=== PATIENT | male | born 1995 ===

== ENCOUNTER → 2016-02-25 | Outpatient (CLI) | payer OTHER ==
[~2016-02-25] MED LIST: EPP3/2 INJ
[2016-03-02 22:21] LABS: ANA SCREEN Negative (Negative); C1 ESTERASE INHIB TC298 35 mg/dL (21-39); IGE RECEPTOR AB(ANTI-IgE IgG)* 32 ng/mL (<168)
== END | disposition home or self-care (01) ==
LOC: C.LAB1850 13:16
PROVIDERS: ATTEND Internal Medicine Pulmonary Disease
DX: T78.3XXA Angioneurotic edema, initial encounter (principal)